=== PATIENT | male | born 1975 | race Asian ===

== ENCOUNTER → 2024-04-17 | Outpatient (CLI) | payer BC, SELFPAY ==
--- NOTE | 2024-04-17 | XR_ITS ---
Examination: Knee bilateral, 6 views Technique: Knee AP, lateral, oblique each knee total 6 views Date and time of exam: April 17, 2024 0743 hours INDICATIONS: Right knee pain beginning one year ago. FINDINGS: Right knee moderate tricompartment osteoarthritis, most severe lateral joint space Left knee moderate to advanced tricompartment osteoarthritis, most severe medial joint space No fracture or dislocation involving either knee IMPRESSION: Right knee moderate tricompartment osteoarthritis, most severe lateral joint space Left knee moderate to advanced tricompartment osteoarthritis, most severe medial joint space
[2024-04-17 09:10] LABS: Alanine Aminotransferase 97 U/L (10-49); Albumin, Serum 4.8 gm/dL (3.5-5.0); Alkaline Phosphatase 169 U/L (46-116); Aspartate Amino Transferase 45 U/L (0-34); Bilirubin,Direct 0.2 mg/dL (0.0-0.3); Bilirubin,Total 0.7 mg/dL (0.3-1.2); Cardiac Risk Estimate 4.4 RATIO (4.0-6.7); Cholesterol 225 mg/dL (132-200); HDL Cholesterol 51 mg/dL (40-60); LDL Cholesterol,Calculated 130 mg/dL (0-130); Total Protein 7.4 gm/dL (5.7-8.2); Triglycerides 221 mg/dL (30-150)
== END | disposition home or self-care (01) ==
LOC: CDIM 07:02 → COPL 07:50
PROVIDERS: PCP Family Medicine; Referring Provider Family Medicine; Visit Provider Radiology Diagnostic Radiology
DX: M17.0 Bilateral primary osteoarthritis of knee (principal); R94.5 Abnormal results of liver function studies; E78.2 Mixed hyperlipidemia
CPT/HCPCS: 36415; 73562; 80061; 80076